=== PATIENT | male | born 1945 | race Caucasian/White ===

== ENCOUNTER 2018-03-08 09:46 | Day surgery (SDC) | payer OTHER ==
[2018-03-06 10:38] VITALS: BMI 44.9
[2018-03-08] MEDS ORDERED: ceFAZolin SODIUM 1 GM VIAL IVPB ONE (13:05)
[2018-03-08] MEDS ORDERED: BUPIVACAINE HCL/PF (5 MG/ML) 30 ML VIAL IJ ONE (14:01)
[2018-03-08] MEDS ORDERED: ONDANSETRON 4 MG/2 ML VIAL IVPUSH PRN (14:24)
[2018-03-08] MEDS ORDERED: oxyCODONE HCL 5 MG TABLET PO PRN (14:24)
[2018-03-08] MEDS ORDERED: IBUPROFEN 800 MG/8 ML IJ IVPB PRN (14:24)
[2018-03-08] MEDS ORDERED: LACTATED RINGERS SOLUTION 1,000 ML IV SCH (14:30)
--- NOTE | 2018-03-08 15:01 | OP ---
DATE OF OPERATION: 03/08/2018 PREOPERATIVE DIAGNOSIS: Right hydrocele. POSTOPERATIVE DIAGNOSIS: Right hydrocele. PROCEDURE: Right hydrocelectomy. ATTENDING SURGEON: Vincent Medina MD ANESTHESIA: General by LMA. DESCRIPTION OF THE PROCEDURE: The patient was brought into the operating room. After a timeout the patient was prepped and draped in the usual sterile fashion. Ancef 2 g IV was administered and SCDs placed on the lower extremities. A horizontal incision was made over the right hemiscrotum through the skin and subcutaneous tissues until the hydrocele sac with the equivalent was noted. Testes and hydrocele were then delivered through the incision. The hydrocele was opened. The hydrocele sac was drained and the testicular contents drained. The edges of the resected sac were fulgurated and then a running 3-0 chromic suture was also placed along the entire resected edge. The scrotal wall as well as the usual testicular contents were then thoroughly examined and any bleeding vessels were fulgurated. A 1/2-inch Cassidy drain was then brought out through separate stab at the dependent portion of the hemiscrotum. The testis was then carefully returned to its position in the scrotum. The underlying layers were closed with a running 3-0 chromic suture and the skin brought together with interrupted 4-0 horizontal mattress sutures. The patient was also given 18 mL of 0.5 of Marcaine at the completion of the case in the region of the cord. The drain was secured in place with a 4-0 chromic. Estimated blood loss for the procedure was less than 25 mL. The patient tolerated the procedure well, left the OR in stable and satisfactory condition. MD JIM OGDEN/[id number]
[2018-03-08 15:57] VITALS: PULSE 52; TEMP 97.8
[2018-03-08 16:59] VITALS: BP 160/75
--- NOTE | 2018-03-13 12:58 | PATH ---
Surgical Pathology Report Patient Name: BANDAR GLEASON [facility]. Rec. #: [id number] /Age/Gender: 1945 (Age: 72) / M Account: [id number] Location: [facility] Taken: 03/08/2018 Received: 03/09/2018 Reported: 03/13/2018 Physicians: Vincent Medina MD Specimen(s) Received RIGHT HYDROCELE SAC Clinical History Hydrocele in an adult Final Diagnosis RIGHT HYDROCELE SAC EXCISION: CONSISTENT WITH HYDROCELE SAC, WITH FOCAL CHOLESTEROL CLEFTS SURROUNDED BY MULTINUCLEATED GIANT CELLS AND MIXED INFLAMMATORY. SEE COMMENT. Comment: This may represent a cholesterol granuloma of the hydrocele sac. Electronically Signed Lorena Garcia M.D. Gross Description Received in formalin labeled "right hydrocele sac," is a 7.0 x 4.0 x 1.2 cm aggregate of mcknight-munoz fibromembranous tissue, consistent with a disrupted hydrocele sac. Senior Account Director sections are submitted in one cassette. /03/09/2018 saudi03/09/2018
== END 2018-03-08 17:00 | disposition home or self-care (01) ==
LOC: JASU-SURG 09:46
PROVIDERS: ATTEND Urology
PROC: 0VBF0ZZ Excision of Right Spermatic Cord, Open Approach (ICD-10-PCS; principal; 2018-03-08 12:30)
DX: N43.2 Other hydrocele (principal)
CPT/HCPCS: 82962; 88304-TC; 94760